=== PATIENT | female | born 1995 | race Caucasian/White ===

== ENCOUNTER 2023-08-04 01:56 | Emergency (ER) | payer OTHER ==
--- NOTE | 2023-08-04 03:14 | ED Physician Documentation ---
PD HPI FOCAL NEURO - Stated complaint Stated Complaint: FACE NUMBNESS - Chief complaint Chief Complaint: Neuro - History obtained from History obtained from: Patient - History of Present Illness Weakness: Face Numbness: Face - Additional information Additional information: HPI from patient. Pt c/o right facial weakness, decreased sensation. she awoke with these symptoms approximately 1-2 hours [employer]. denies POWERS, visual changes. denies any other weakness or paresthesias except right face, No hearing changes. Has not had these symptom before. no rash, no fever. Review of Systems Eyes: reports: Other (sensation of unable to completely/firmly close right eye) Ears: reports: Reviewed and negative Nose: reports: Reviewed and negative Cardiac: reports: Reviewed and negative Respiratory: reports: Reviewed and negative Neurologic: reports: Focal weakness PD PAST MEDICAL HISTORY - Past Medical History Past Medical History: Yes Respiratory: Other Other Past Medical History: Cystic Fibrosis - Past Surgical History Past Surgical History: Yes HEENT: Other - Present Medications Home Medications: Ambulatory Orders Medication Instructions Recorded Confirmed Diclofenac Sodium 1% Gel [Voltaren 1 applic TOP DAILY 08/04/23 08/04/23 Gel] EPINEPHrine [Epinephrine] 0.3 mg IM DAILY PRN 08/04/23 08/04/23 Elexacaftor/Tezacaftor/Ivacaft 1 tab PO QPM 08/04/23 08/04/23 [Trikafta 100-50-75 mg/150 mg] Elexacaftor/Tezacaftor/Ivacaft 2 tab PO DAILY 08/04/23 08/04/23 [Trikafta 100-50-75 mg/150 mg] Lipase/Protease/Amylase [Zenpep Dr 1 cap PO DAILY 08/04/23 08/04/23 10,000 Unit Capsule] predniSONE [Deltasone] 10 mg PO [id number] #42 tab 08/04/23 valACYclovir [Valtrex] 1,000 mg PO BID 5 Days #20 tablet 08/04/23 - Allergies Allergies/Adverse Reactions: Allergies Allergy/AdvReac Type Severity Reaction Status Date / Time beeswax Allergy Edema Verified 08/04/23 03:18 omeprazole Allergy Rash Verified 08/04/23 03:20 [place] nuts Allergy Edema Uncoded 08/04/23 03:18 - Social History Does the pt smoke?: No Smoking Status: Never smoker Does the pt drink ETOH?: Yes ETOH Use: Beer Does the pt have substance abuse?: No - Immunizations Immunizations are current?: Yes - POLST Patient has POLST: No PD ED PE NORMAL - Vitals Vital signs reviewed: Yes - General General: Alert and oriented X 3, No acute distress, Well developed/nourished - HEENT HEENT: PERRL, EOMI, Moist mucous membranes - Cardiac Cardiac: RRR, No murmur - Respiratory Respiratory: No respiratory distress, Clear bilaterally - Abdomen Abdomen: Soft, Non tender - Derm Derm: No rash - Neuro Neuro: Alert and oriented X 3, Normal speech Eye Opening: Spontaneous Motor: Obeys Commands Verbal: Oriented GCS Score: 15 PD ED PE EXPANDED - Neuro Neuro: Alert and Oriented X 3, CN deficit (CN VII deficit with right facial droop including sagging corner of mouth, flattening of nasolabial fold and right forehead creases. unable to firmly shut right eye against resistance and asymmetric eyebrow raise (less raised on right)), PERRL Results - Vitals Vitals: Oxygen O2 Source Room air PD Medical Decision Making - ED course Complexity details: considered differential, d/w patient ED course: NIHSS not undertaken; HPI and facial exam findings, combined with no c/o anywhere besides the face (particularly denies limb weakness, numbness, imbalance, visual changes. speech is articulate and accurate in conversation), all confidently consistent with bells palsy. no signs/sx to indicate mass effect as cause and thus no emergent imaging undertaken. given 1 gm valacyclovir and 60mg prednisone with prescriptions for these medications electronically submitted to her pharmacy of choice. advised to follow up with PCP next availablappointmente appointment Departure - Departure Disposition: 01 Home, Self Care Clinical Impression: Soliman's palsy Condition: Good Instructions: ED [place] Palsy Prescriptions: predniSONE [Deltasone] 10 mg PO [id number] #42 tab valACYclovir [Valtrex] 1,000 mg PO BID 5 Days #20 tablet Comments: Your description of symptoms combined with the findings on physical exam are consistent with Soliman's palsy. The exact cause of Soliman's palsy is not diagnosable in the emergency department, and typically cannot be figured on subsequent/outpatient tests. Because there is association with some viral infections, there is a slight benefit (increased likelihood of recovery and decreased time to recovery) of an anti-viral medication. Along these lines, you were given the first dose of valacyclovir in the emergency department, and I have prescribed this anti-viral medication (5-day course) to the [facility] pharmacy in [place]. There is strong evidence of improvement with oral steroids compared to patients who do not receive steroids for Soliman's palsy, and thus you were also given a dose of prednisone in the emergency department. I have submitted a prescription for a 10-day tapering course of the steroid to the [facility] pharmacy, as well. As we discussed, you will need to tape your right eyelid shut during hours of sleep to prevent injury to the cornea (due to incomplete closure of the eyelid). You should also purchase artificial tears ([id number]), both the drop form as well as ointment form. You can use the artificial tears during the day if you feel your eye is drying out, but you should also use the artificial tears ointment prior to going to sleep to keep the eye lubricated. Forms: Activity restrictions Discharge Date/Time: 08/04/23 05:36
[2023-08-04] MEDS: valACYclovir 500 MG TABLET PO STA (05:24)
[2023-08-04] MEDS: predniSONE 20 MG TABLET PO STA (05:24)
[2023-08-04 05:38] VITALS: BP 100/74; O2SAT 99
== END 2023-08-04 05:36 | disposition home or self-care (01) ==
LOC: ED 01:56
DX: G51.0 Bell's palsy (principal)
CPT/HCPCS: 99282; 99283; A9270; J7512

== ENCOUNTER 2023-10-22 08:04 | Emergency (ER) | payer OTHER ==
[2023-10-22 08:47] VITALS: O2SAT 99
[2023-10-22 09:03] LABS: BASOPHILS % (AUTO) 0.4 %; EOSINOPHILS # (AUTO) 0.2 10^3/uL (0.0-0.7); EOSINOPHILS % (AUTO) 2.1 %; HCT - HEMATOCRIT 42.5 % (37.0-47.0); HGB - HEMOGLOBIN 13.7 g/dL (12.0-16.0); LYMPHOCYTES # (AUTO) 1.9 10^3/uL (1.5-3.5); LYMPHOCYTES % (AUTO) 22.9 %; MEAN CORPUSCULAR HEMOGLOBIN 27.8 pg (27.0-31.0); MEAN CORPUSCULAR HGB CONC 32.2 g/dL (32.0-36.0); MEAN CORPUSCULAR VOLUME 86.4 fL (81.0-99.0); MONOCYTES # (AUTO) 0.3 10^3/uL (0.0-1.0); MONOCYTES % (AUTO) 3.8 %; NEUTROPHILS # (AUTO) 5.8 10^3/uL (1.5-6.6); NEUTROPHILS % (AUTO) 70.4 %; PLT - PLATELET COUNT 239 10^3/uL (130-450); RED BLOOD COUNT 4.92 10^6/uL (4.20-5.40); RED CELL DISTRIBUTION WIDTH 11.6 % (12.0-15.0); WHITE BLOOD COUNT 8.2 x10^3/uL (4.8-10.8)
[2023-10-22 09:22] LABS: ALBUMIN 4.2 g/dL (3.2-5.5); ALBUMIN/GLOBULIN RATIO 1.8 (1.0-2.2); ALKALINE PHOSPHATASE 70 IU/L (42-121); ALT ALANINE AMINOTRANSFERASE 65 IU/L (10-60); AST ASPARTATE AMINOTRANSFERASE 24 IU/L (10-42); BILIRUBIN,TOTAL 0.3 mg/dL (0.2-1.0); BUN - BLOOD UREA NITROGEN 12 mg/dL (6-20); CARBON DIOXIDE - CO2 27 mmol/L (21-32); CHLORIDE 105 mmol/L (101-111); GFR - MDRD 66 (>89); GLUCOSE 117 mg/dL (74-104); LIPASE < 10 U/L (11-82); POTASSIUM 4.2 mmol/L (3.5-4.5); SODIUM 137 mmol/L (135-145); TOTAL PROTEIN 6.5 g/dL (6.4-8.9)
--- NOTE | 2023-10-22 11:18 | ED Physician Documentation ---
PD HPI ABD PAIN - Stated complaint Stated Complaint: RT SIDE PX - Chief complaint Chief Complaint: Abd Pain - History obtained from History obtained from: Patient - History of Present Illness Timing - onset: How many hours ago (2), Today Timing - details: Abrupt onset, Still present Quality: Aching, Sharp, Pain Location: RLQ Radiation: Right flank Improved by: No: Eating, Laying still, Vomiting Worsened by: No: Moving, Breathing Associated symptoms: Nausea, Vomiting. No: Fever, Diarrhea, Constipation, Dysuria, Vaginal dc Similar symptoms before: Has not had sx before (prior ovarian cyst with much less pain and different character in the past.) Recently seen: Not recently seen Review of Systems Constitutional: denies: Fever, Chills GI: reports: Abdominal Pain, Nausea, Vomiting : denies: Dysuria, Frequency, Discharge, Missed period PD PAST MEDICAL HISTORY - Past Medical History Past Medical History: Yes Respiratory: Other Other Past Medical History: cystic fibrosis - Past Surgical History Past Surgical History: Yes HEENT: Other - Present Medications Home Medications: Ambulatory Orders Medication Instructions Recorded Confirmed Diclofenac Sodium 1% Gel [Voltaren 1 applic TOP DAILY 08/04/23 08/04/23 Gel] EPINEPHrine [Epinephrine] 0.3 mg IM DAILY PRN 08/04/23 08/04/23 Elexacaftor/Tezacaftor/Ivacaft 1 tab PO QPM 08/04/23 08/04/23 [Trikafta 100-50-75 mg/150 mg] Elexacaftor/Tezacaftor/Ivacaft 2 tab PO DAILY 08/04/23 08/04/23 [Trikafta 100-50-75 mg/150 mg] Lipase/Protease/Amylase [Zenpep Dr 1 cap PO DAILY 08/04/23 08/04/23 10,000 Unit Capsule] predniSONE [Deltasone] 10 mg PO [id number] #42 tab 08/04/23 valACYclovir [Valtrex] 1,000 mg PO BID 5 Days #20 tablet 08/04/23 Meloxicam [Mobic] 7.5 mg PO BID 10 Days #20 tablet 10/22/23 Ondansetron Odt [Zofran] 4 mg TL Q6H PRN #10 tablet 10/22/23 Oxycodone HCl/Acetaminophen 1 each PO Q6H PRN #20 tablet 10/22/23 [Percocet 5-325 mg Tablet] Tamsulosin [Flomax] 0.4 mg PO DAILY #5 cap 10/22/23 - Allergies Allergies/Adverse Reactions: Allergies Allergy/AdvReac Type Severity Reaction Status Date / Time beeswax Allergy Edema Verified 10/22/23 08:40 omeprazole Allergy Rash Verified 10/22/23 08:40 Macadem[place] nuts Allergy Edema Uncoded 10/22/23 08:40 - Social History Does the pt smoke?: No Smoking Status: Never smoker Does the pt drink ETOH?: Yes Does the pt have substance abuse?: No - Immunizations Immunizations are current?: Yes - POLST Patient has POLST: No PD ED PE NORMAL - Vitals Vital signs reviewed: Yes - General General: Alert and oriented X 3, Well developed/nourished, Other (appears in considerable pain.) - Cardiac Cardiac: RRR, No murmur - Respiratory Respiratory: No respiratory distress, Clear bilaterally - Abdomen Abdomen: Normal bowel sounds, Soft, Non distended, Other (tender right low abd to mid right abd, and right CVA tenderness signficantly. Left side not tender.) - Derm Derm: Normal color, Warm and dry, No rash - Extremities Extremities: Normal ROM s pain - Neuro Neuro: Alert and oriented X 3, No motor deficit, Normal speech Results - Vitals Vitals: Vital Signs - 24 hr 10/22/23 10/22/23 10/22/23 08:36 12:40 14:00 Temperature 36.1 C L Heart Rate 75 59 L 78 Respiratory 16 16 16 Rate Blood Pressure 133/85 H 120/79 119/94 H O2 Saturation 99 98 99 10/22/23 10/22/23 10/22/23 15:30 16:00 16:01 Temperature Heart Rate 80 80 Respiratory 16 Rate Blood Pressure 110/76 110/76 O2 Saturation 97 99 Oxygen O2 Source Room air - Labs Labs: Laboratory Tests 10/22/23 10/22/23 10/22/23 08:34 08:58 08:58 WBC 8.2 RBC 4.92 Hgb 13.7 Hct 42.5 MCV 86.4 MCH 27.8 MCHC 32.2 RDW 11.6 L Plt Count 239 MPV 10.0 Neut # (Auto) 5.8 Lymph # (Auto) 1.9 [place] # (Auto) 0.3 Eos # (Auto) 0.2 Baso # (Auto) 0.0 Absolute Nucleated RBC 0.00 Nucleated RBC % 0.0 Sodium 137 Potassium 4.2 Chloride 105 Carbon Dioxide 27 Anion Gap 5.0 L BUN 12 Creatinine 1.0 Estimated GFR (MDRD) 66 L Glucose 117 H Calcium 9.0 Total Bilirubin 0.3 AST 24 ALT 65 H Alkaline Phosphatase 70 Total Protein 6.5 Albumin 4.2 Globulin 2.3 Albumin/Globulin Ratio 1.8 Lipase < 10 L Serum HCG, Qual Urine Color YELLOW Urine Clarity CLEAR Urine pH 6.5 Ur Specific [place] 1.020 Urine Protein NEGATIVE Urine Glucose (UA) NEGATIVE Urine Ketones NEGATIVE Urine Occult Blood NEGATIVE Urine Nitrite NEGATIVE Urine Bilirubin NEGATIVE Urine Urobilinogen 0.2 (NORMAL) Ur Leukocyte Esterase NEGATIVE Ur Microscopic Review NOT INDICATED Urine Culture Comments NOT INDICATED 10/22/23 08:58 WBC RBC Hgb Hct MCV MCH MCHC RDW Plt Count MPV Neut # (Auto) Lymph # (Auto) [place] # (Auto) Eos # (Auto) Baso # (Auto) Absolute Nucleated RBC Nucleated RBC % Sodium Potassium Chloride Carbon Dioxide Anion Gap BUN Creatinine Estimated GFR (MDRD) Glucose Calcium Total Bilirubin AST ALT Alkaline Phosphatase Total Protein Albumin Globulin Albumin/Globulin Ratio Lipase Serum HCG, Qual NEGATIVE Urine Color Urine Clarity Urine pH Ur Specific [place] Urine Protein Urine Glucose (UA) Urine Ketones Urine Occult Blood Urine Nitrite Urine Bilirubin Urine Urobilinogen Ur Leukocyte Esterase Ur Microscopic Review Urine Culture Comments - Rads (name of study) abd/pelvic CT Relevant Findings:: Prelim report reviewed, EMP independent interpretation of test (proximal right ureteral stone with mod hydronephrosis, about 6 mm. severalkidney stones noted both sides otherwise. 7 cm right ovarian cyst noted without free fluid. Normal appendix. ) PD Medical Decision Making - ED course Complexity details: reviewed results, re-evaluated patient (she did have stepwise improvement in pain with IV toradol, dilaudid, then lido for stones, and dilaudid. She felt improved enough to try going home. ), considered differ ential (the patient was unfortunately in wating room 2-3 hours but given IV/pain meds as soon as brought to room. Pain improved. Consider renal stone, thom, ovarian cyst, UTi, ectopic , among other things. ), d/w patient Departure - Departure Disposition: Home, Self Care Clinical Impression: Right ovarian cyst, Ureterolithiasis, Right sided abdominal pain Condition: Stable Record reviewed to determine appropriate education?: Yes Instructions: ED Stone Renal W Colic Follow-Up: Alexis Middleton MD [Provider Admit Priv/Credential] - Prescriptions: Tamsulosin [Flomax] 0.4 mg PO DAILY #5 cap Meloxicam [Mobic] 7.5 mg PO BID 10 Days #20 tablet Oxycodone HCl/Acetaminophen [Percocet 5-325 mg Tablet] 1 each PO Q6H PRN #20 tablet PRN Reason: pain Ondansetron Odt [Zofran] 4 mg TL Q6H PRN #10 tablet PRN Reason: Nausea / Vomiting Comments: Your pain is coming from a moderate-sized kidney stone passing on the right side. It is still in the upper part of the ureter. It is of the size that should be able to pass. We typically go with medications to decrease ureter spasm and also inflammation. Combination of tamsulosin and meloxicam. Add Tylenol every 4-6 hours if needed for pain and oxycodone/acetaminophen if needed for worse pain. Use Zofran/ondansetron if needed for nausea. Stay normally hydrated. There is no reason to over hydrate per se but you just do not to be under hydrated. Regular diet as tolerated. Follow-up with the urology office in the next few days if this has not passed at that time. Return to the ER if intractable pain despite the medications. Off duty/work for the next 2 to 3 days until this passes. The majority of the time a stone of the size will pass within a day or 2 or so. Incidental finding on your scan was a right ovarian cyst. No signs of it leaking or bleeding internally. Also noted in both kidneys were other small kidney stones that are not in an area to cause pain but you do appear to form several small stones. You could follow-up with the urologist as well even if the stone passes in order to discuss any potential treatments or diet modifications or testing to assess the predilection for stone formation. I sent your prescriptions to preferred pharmacy. My narcotic instructions Forms: PCP List Discharge Date/Time: 10/22/23 16:01
[2023-10-22 12:04] LABS: HCG,QUALITATIVE BLOOD NEGATIVE
[2023-10-22] MEDS: KETOROLAC 15 MG/ML VIAL IVP STA (12:10)
[2023-10-22] MEDS: HYDROmorphone 0.5 MG/0.5 ML SYRINGE IVP STA (12:10)
[2023-10-22] MEDS: ONDANSETRON 4 MG/2 ML VIAL IVP STA (12:10)
[2023-10-22] MEDS: SODIUM CHLORIDE 0.9% 1,000 ML IV STA (12:11)
[2023-10-22] MEDS ORDERED: iohexoL-300 100 ML VIAL ONE (12:26)
[2023-10-22 12:37] LABS: BILIRUBIN,URINE NEGATIVE (NEGATIVE); GLUCOSE, URINE (UA) NEGATIVE (NEGATIVE); KETONES,URINE (UA) NEGATIVE (NEGATIVE); LEUKOCYTE ESTERASE, URINE NEGATIVE (NEGATIVE); NITRITE,URINE NEGATIVE (NEGATIVE); OCCULT BLOOD,URINE NEGATIVE (NEGATIVE); PH,URINE 6.5 PH (5.0-7.5); PROTEIN,URINE NEGATIVE (NEGATIVE); UROBILINOGEN,URINE 0.2 (NORMAL) E.U./dL (NORMAL)
[2023-10-22 12:38] LABS: CLARITY,URINE CLEAR (CLEAR)
--- NOTE | 2023-10-22 13:54 | CT Report ---
PROCEDURE: Abdomen/Pelvis W INDICATIONS: right abd/flank pain onset this AM CONTRAST: Omni 300 100ml TECHNIQUE: After the administration of intravenous contrast, a CT scan of the abdomen and pelvis was performed. Images were recorded and evaluated at appropriate window settings. Reformats: coronal and sagittal. F or radiation dose reduction, the following was used: automated exposure control, adjustment of mA and /or kV according to patient size. COMPARISON: None. FINDINGS: Image quality: Diagnostic. Lower chest: Small hiatal hernia. Liver: No solid mass. Gallbladder: No radiopaque stones or wall thickening. Biliary tree: No intrahepatic or extrahepatic dilation, accounting for age. Spleen: No splenomegaly. Pancreas: Moderate atrophy. The cystic mass is present within the expected position of the pancreas, largest measuring 5.0 x 3.1 cm with a thick internal septation (series 2, image 37). Adrenals: No adrenal nodule. Kidneys and ureters: Obstructing 5 mm stone in the proximal right ureter (1489 Hounsfield unit). This results in moderate hydronephrosis and hydroureter and delayed nephrogram. Moderate burden of bilate ral nonobstructing nephrolithiasis. Stomach, bowel and peritoneum: No gastric or small bowel dilation. No abnormal wall thickening. No pa thologic free fluid. Diverticulosis without evidence of diverticulitis. Lymph nodes: No central or retroperitoneal adenopathy. Vessels: No infrarenal aortic aneurysm. Patent portal vein. PELVIS Reproductive organs: Thick-walled right ovarian cystic lesion with irregular wall enhancement, measur ing 3.7 x 5.0 cm. Bladder: No abnormal wall thickening, accounting for underdistention. Pelvic lymph nodes: No pelvic adenopathy by size criteria. Bones: No aggressive osseous abnormality. Other: No significant ventral or inguinal hernia. IMPRESSION: Obstructing 5 mm stone in the proximal right ureter, resulting in moderate hydronephrosis, hydrourete r and delayed nephrogram. Additional moderate burden of bilateral nonobstructing nephrolithiasis. 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 Further characterization with nonemergent MRI of the pancreas is recommended if not completed in th e past. Complex right ovarian cystic lesion measuring 3.7 x 5.0 cm. Recommend follow-up pelvic ultrasound in 6-12 weeks. Reviewed by: Mehul Chand MD on 10/22/2023 1:53 PM PDT Approved by: Mehul Chand MD on 10/22/2023 1:53 PM PDT Station ID: [id number]
[2023-10-22] MEDS ORDERED: LIDOCAINE-MPF 2% 5 ML VIAL ONE (14:07)
[2023-10-22] MEDS: HYDROmorphone 1 MG/ML CARPUJECT IVP STA (14:10)
[2023-10-22] MEDS: LIDOCAINE-MPF 2% 5 ML in SODIUM CHLORIDE 0.9% 50 ML IV STA (14:25)
[2023-10-22] MEDS: iohexoL-300 100 ML VIAL IVP ONE (14:46)
[2023-10-22 16:11] VITALS: BP 110/76
== END 2023-10-22 16:01 | disposition home or self-care (01) ==
LOC: ED 08:04
DX: N83.201 Unspecified ovarian cyst, right side (principal); N13.2 Hydronephrosis with renal and ureteral calculous obstruction
CPT/HCPCS: 36415; 74177; 80053; 81003; 83690; 84703; 85025; 96361; 96374; 96375; 96376; 99284; J1170; J7040; Q9967; 81001; 87086